=== PATIENT | female | born 1995 | race Caucasian/White ===

== ENCOUNTER 2024-09-15 12:44 | Emergency (ER) | payer OTHER ==
[~2024-09-15] VITALS: Ht 149.9 cm; Wt 58.0 kg
[2024-09-15] MEDS ORDERED: DOXY100 PO (16:08)
[2024-09-15] MEDS ORDERED: Doxycycline Hyclate 100 MG TAB PO ONE (16:10)
== END 2024-09-15 16:19 | disposition home or self-care (01) ==
LOC: ER 12:44
DX: L73.9 Follicular disorder, unspecified (principal)
CPT/HCPCS: 72193; 99283-25; A9270; Q9967

== ENCOUNTER 2024-10-03 17:22 | Emergency (ER) | payer OTHER ==
[~2024-10-03] VITALS: Ht 149.9 cm; Wt 57.6 kg
[~2024-10-03 17:22] MED LIST: DOXY100 PO
[2024-10-03] MEDS ORDERED: Lactated Ringer's 1,000 ML IV ONE (17:50)
[2024-10-03 18:25] LABS: BASOPHILS ABSOLUTE AUTO 0.04 K/mm3 (0.00-0.23); BASOPHILS PERCENT AUTO 1 % (0-2); EOSINOPHILS ABSOLUTE AUTO 0.03 K/mm3 (0.00-0.68); EOSINOPHILS PERCENT AUTO 0 % (0-6); Hematocrit 39.8 % (33.0-51.0); Hemoglobin 13.8 g/dL (11.5-16.0); IMMATURE GRAN ABSOLUTE AUTO 0.02 K/mm3 (0.00-0.10); IMMATURE GRAN PERCENT AUTO 0 % (0-1); LYMPHOCYTES ABSOLUTE AUTO 1.94 K/mm3 (0.84-5.20); LYMPHOCYTES PERCENT AUTO 22 % (21-46); MONOCYTES ABSOLUTE AUTO 0.55 K/mm3 (0.16-1.47); MONOCYTES PERCENT AUTO 6 % (4-13); Mean Corpuscular HGB 33.3 pg (26.0-34.0); Mean Corpuscular HGB Conc 34.7 g/dL (31.5-36.5); Mean Corpuscular Volume 96 fL (80-100); Mean Platelet Volume 8.9 fL (9.1-12.4); NEUTROPHILS ABSOLUTE AUTO 6.25 K/mm3 (1.96-9.15); NEUTROPHILS PERCENT AUTO 71 % (41-73); Platelet Count 318 K/mm3 (150-400); RDW Coefficient Variation 13.3 % (11.7-14.2); RDW Standard Deviation 47.4 fL (35.1-46.3); Red Blood Cell Count 4.14 M/mm3 (3.80-5.20); White Blood Cell Count 8.83 K/mm3 (4.00-11.30)
[2024-10-03 18:43] LABS: Albumin, Blood 4.6 g/dL (3.4-5.0); Albumin/Globulin Ratio 1.4 (0.8-1.8); Bilirubin, Total 0.6 mg/dL (0.1-1.0); Bun/Creatinine Ratio 22.7 (12.0-20.0); Calcium, Blood 8.8 mg/dL (8.5-10.1); Creatinine, Blood 0.66 mg/dL (0.40-1.00); Globulin, Blood 3.4 g/dL (2.2-4.0); Potassium, Blood 3.4 mmol/L (3.5-5.5)
[2024-10-03] MEDS ORDERED: Trimethoprim/Sulfamethoxazole DS Tab PO ONE (21:00)
[2024-10-03] MEDS ORDERED: SULTRIDS PO (21:03)
== END 2024-10-03 21:18 | disposition home or self-care (01) ==
LOC: ER 17:22
PROVIDERS: Student in an Organized Health Care Education/Training Program
DX: N76.4 Abscess of vulva (principal); N76.2 Acute vulvitis; F17.210 Nicotine dependence, cigarettes, uncomplicated
CPT/HCPCS: 36415; 72193; 80053; 83605; 84703; 85025; A9270; J7120; Q9967